=== PATIENT | male | born 1955 | race Asian ===

== ENCOUNTER 2023-12-01 10:35 | Inpatient (IN) | payer OTHER ==
[~2023-12-01] VITALS: Ht 170.2 cm; Wt 77.1 kg
[2023-12-01 11:07] VITALS: BP 126/74; PULSE 64; RESP 18; TEMP 98.7; O2SAT 98
[2023-12-01 11:50] LABS: BASOPHILS # (AUTO) 0.1 K/uL (0.00-0.22); BASOPHILS % (AUTO) 0.6 % (0.0-2.0); EOSINOPHILS # (AUTO) 0.1 K/uL (0-0.4); EOSINOPHILS % (AUTO) 1.7 % (0.0-4.0); HEMATOCRIT 43.5 % (36-52); LYMPHOCYTES # (AUTO) 2.2 K/uL (2.0-11.5); LYMPHOCYTES % (AUTO) 26.7 % (20.5-51.1); MEAN CORPUSCULAR HEMOGLOBIN 31 pg (27-31); MEAN CORPUSCULAR HGB CONC 34 g/dL (33-37); MEAN CORPUSCULAR VOLUME 89.8 fL (80-94); MONOCYTES # (AUTO) 0.7 K/uL (0.8-1.0); MONOCYTES % (AUTO) 8.6 % (1.7-9.3); NEUTROPHILS # (AUTO) 5.2 K/uL (1.8-7.7); NEUTROPHILS % (AUTO) 62.4 % (42.2-75.2); PLATELET COUNT (AUTO) 163 K/uL (140-450); RED BLOOD CELL COUNT(AUTO) 4.85 MIL/uL (4.20-6.10); RED CELL DISTRIBUTION WIDTH 13.7 % (11.6-13.7); WHITE BLOOD COUNT (AUTO) 8.3 K/uL (4.8-10.8)
[2023-12-01 12:06] LABS: CALCIUM 8.9 mg/dL (8.5-10.1); CARBON DIOXIDE 33.8 mmol/L (21-32)
[2023-12-01 12:10] LABS: POTASSIUM 2.8 mmol/L (3.5-5.1)
[2023-12-01 12:12] LABS: INR 1.05 (0.8-1.2); PARTIAL THROMBOPLASTIN TIME 25.4 secs (22-35.6)
[2023-12-01 12:13] LABS: ALANINE AMINOTRANSFERASE 36 U/L (12-78); ALBUMIN 4.1 g/dL (3.4-5.0); ALKALINE PHOSPHATASE 71 U/L (50-136); ASPARTATE AMINOTRANSFERASE 20 U/L (15-37); BILIRUBIN,DIRECT 0.1 mg/dL (0.0-0.3); TOTAL BILIRUBIN 0.7 mg/dL (0.0-1.0); TOTAL PROTEIN, SERUM 8.3 g/dL (6.4-8.2)
[2023-12-01] MEDS ORDERED: POTASSIUM CHLORIDE 10 MEQ TABER PO ONE (12:15)
[2023-12-01] MEDS ORDERED: ACETAMINOPHEN 325 MG TAB PO PRN (14:35)
[2023-12-01] MEDS ORDERED: MORPHINE SULFATE 2 MG/ML SYR IVP PRN (14:35)
[2023-12-01] MEDS ORDERED: HYDROcodone/APAP 5/325 MG 1 TAB TAB PO PRN (14:35)
[2023-12-01] MEDS ORDERED: ONDANSETRON 4 MG/2 ML VIAL IVP PRN (14:35)
[2023-12-01] MEDS ORDERED: MAGNESIUM OXIDE 400 MG TAB PO PRN (14:35)
[2023-12-01] MEDS ORDERED: MAG SULF 2000 MG/WATER PREMIX 50 ML IV PRN (14:35)
[2023-12-01] MEDS ORDERED: DEXTROSE 50% 50 ML SYR IVP PRN (14:40)
[2023-12-01] MEDS ORDERED: hydrALAZINE 20 MG/ML VIAL IVP PRN (14:40)
[2023-12-01] MEDS: BLOOD GLUCOSE MONITORING 1 DEV DEV FS SCH ×2 (17:32→21:38)
[2023-12-01] MEDS: INSULIN LISPRO SLIDING SCALE 100 UNITS/ML VIAL SUBQ PRN ×2 (17:48→21:41)
[2023-12-01] MEDS ORDERED: [UNRECOGNIZED DRUG - CODE] PO (19:31)
[2023-12-01] MEDS ORDERED: HYDR25TA32 PO (19:31)
[2023-12-01] MEDS ORDERED: ATOR20TA40 PO (19:31)
[2023-12-01] MEDS ORDERED: ASPI-1794 PO (19:31)
[2023-12-01] MEDS ORDERED: AMLO10TA88 PO (19:31)
[2023-12-01] MEDS ORDERED: METF-346 PO (19:31)
[2023-12-01 20:45] VITALS: PULSE 56; O2SAT 95
[2023-12-01 20:51] VITALS: PULSE 62
[2023-12-02] VITALS (9 sets, daily range): BP systolic 125–140; BP diastolic 64–88; PULSE 54–74; RESP 17–20; TEMP 97.7–98.2; O2SAT 94–99
[2023-12-02 06:10] LABS: BASOPHILS % (AUTO) 0.5 % (0.0-2.0); EOSINOPHILS # (AUTO) 0.2 K/uL (0-0.4); EOSINOPHILS % (AUTO) 2.9 % (0.0-4.0); HEMATOCRIT 42.8 % (36-52); HEMOGLOBIN 14.7 g/dL (12.0-18.0); LYMPHOCYTES # (AUTO) 2.2 K/uL (2.0-11.5); MEAN CORPUSCULAR HEMOGLOBIN 31 pg (27-31); MEAN CORPUSCULAR HGB CONC 34 g/dL (33-37); MEAN CORPUSCULAR VOLUME 89.6 fL (80-94); MONOCYTES # (AUTO) 0.7 K/uL (0.8-1.0); MONOCYTES % (AUTO) 9.1 % (1.7-9.3); NEUTROPHILS # (AUTO) 4.9 K/uL (1.8-7.7); NEUTROPHILS % (AUTO) 60.5 % (42.2-75.2); PLATELET COUNT (AUTO) 167 K/uL (140-450); RED BLOOD CELL COUNT(AUTO) 4.78 MIL/uL (4.20-6.10); RED CELL DISTRIBUTION WIDTH 13.7 % (11.6-13.7); WHITE BLOOD COUNT (AUTO) 8.1 K/uL (4.8-10.8)
[2023-12-02] MEDS: BLOOD GLUCOSE MONITORING 1 DEV DEV FS SCH ×4 (06:34→21:04)
[2023-12-02 06:36] LABS: ALBUMIN 3.7 g/dL (3.4-5.0); ANION GAP 10.8 (8-16); CALCIUM 8.5 mg/dL (8.5-10.1); CARBON DIOXIDE 32.1 mmol/L (21-32); CHOL/HDL RATIO 2.6 (1-4.5); CREATININE 0.8 mg/dL (0.6-1.3); MAGNESIUM 1.9 mg/dL (1.8-2.4); TOTAL BILIRUBIN 0.8 mg/dL (0.0-1.0); TOTAL PROTEIN, SERUM 7.5 g/dL (6.4-8.2)
[2023-12-02 06:42] LABS: POTASSIUM 2.9 mmol/L (3.5-5.1)
[2023-12-02] MEDS: amLODIPine 5 MG TAB PO SCH (08:27)
[2023-12-02] MEDS: ENOXAPARIN 40 MG/0.4 ML SYR SUBQ SCH (08:28)
[2023-12-02] MEDS: KCL 20 MEQ IN 100 mL PREMIX 200 ML IV PRN ×2 (08:29→11:22)
[2023-12-02] MEDS ORDERED: POTASSIUM CHLORIDE 40 MEQ in DEXTROSE 5% 250 ML IV SCH (09:05)
[2023-12-02] MEDS ORDERED: POTASSIUM CHLORIDE 40 MEQ, LIDOCAINE 1% 25 MG in NACL 0.9% 250 ML IV PRN (09:10)
[2023-12-02] MEDS ORDERED: POTASSIUM CHLORIDE 40 MEQ, LIDOCAINE 1% 25 MG in NACL 0.9% 250 ML IV SCH (09:10)
[2023-12-02] MEDS: INSULIN LISPRO SLIDING SCALE 100 UNITS/ML VIAL SUBQ PRN (11:55)
[2023-12-02] MEDS ORDERED: ATORVASTATIN 20 MG TAB PO SCH (21:00)
[2023-12-02] MEDS: ATORVASTATIN 20 MG TAB PO SCH (21:04)
[2023-12-03] VITALS (8 sets, daily range): BP systolic 124–159; BP diastolic 65–89; PULSE 52–84; RESP 16–20; TEMP 97.2–98.2; O2SAT 95–98
[2023-12-03] MEDS: BLOOD GLUCOSE MONITORING 1 DEV DEV FS SCH ×4 (06:33→20:31)
[2023-12-03 07:05] LABS: BASOPHILS # (AUTO) 0.1 K/uL (0.00-0.22); BASOPHILS % (AUTO) 0.7 % (0.0-2.0); EOSINOPHILS # (AUTO) 0.2 K/uL (0-0.4); EOSINOPHILS % (AUTO) 2.6 % (0.0-4.0); HEMATOCRIT 42.2 % (36-52); HEMOGLOBIN 14.5 g/dL (12.0-18.0); LYMPHOCYTES # (AUTO) 2.5 K/uL (2.0-11.5); LYMPHOCYTES % (AUTO) 27.4 % (20.5-51.1); MEAN CORPUSCULAR HEMOGLOBIN 31 pg (27-31); MEAN CORPUSCULAR HGB CONC 34 g/dL (33-37); MEAN CORPUSCULAR VOLUME 89.9 fL (80-94); MONOCYTES # (AUTO) 0.8 K/uL (0.8-1.0); MONOCYTES % (AUTO) 8.5 % (1.7-9.3); NEUTROPHILS # (AUTO) 5.6 K/uL (1.8-7.7); NEUTROPHILS % (AUTO) 60.8 % (42.2-75.2); PLATELET COUNT (AUTO) 158 K/uL (140-450); RED BLOOD CELL COUNT(AUTO) 4.69 MIL/uL (4.20-6.10); RED CELL DISTRIBUTION WIDTH 13.8 % (11.6-13.7); WHITE BLOOD COUNT (AUTO) 9.2 K/uL (4.8-10.8)
[2023-12-03 07:39] LABS: ALBUMIN 3.4 g/dL (3.4-5.0); ANION GAP 12.8 (8-16); CALCIUM 8.5 mg/dL (8.5-10.1); CARBON DIOXIDE 29.5 mmol/L (21-32); CREATININE 0.9 mg/dL (0.6-1.3); POTASSIUM 3.3 mmol/L (3.5-5.1); TOTAL BILIRUBIN 0.8 mg/dL (0.0-1.0); TOTAL PROTEIN, SERUM 7.1 g/dL (6.4-8.2)
[2023-12-03] MEDS: amLODIPine 5 MG TAB PO SCH (09:09)
[2023-12-03] MEDS: ASPIRIN 325 MG TABEC PO SCH (09:10)
[2023-12-03] MEDS: ENOXAPARIN 40 MG/0.4 ML SYR SUBQ SCH (09:13)
[2023-12-03] MEDS: POTASSIUM CHLORIDE 10 MEQ TABER PO PRN (09:19)
[2023-12-03] MEDS: INSULIN LISPRO SLIDING SCALE 100 UNITS/ML VIAL SUBQ PRN ×2 (12:17→20:34)
[2023-12-03] MEDS: ATORVASTATIN 20 MG TAB PO SCH (20:31)
[2023-12-04] VITALS: BP 134/84; PULSE 57; PULSE 66; RESP 18; TEMP 97.8; O2SAT 96
[2023-12-04 04:00] VITALS: BP 126/80; PULSE 53; PULSE 55; RESP 18; TEMP 98.2; O2SAT 96
[2023-12-04] MEDS: BLOOD GLUCOSE MONITORING 1 DEV DEV FS SCH ×2 (06:31→12:05)
[2023-12-04 06:46] LABS: BASOPHILS % (AUTO) 0.6 % (0.0-2.0); EOSINOPHILS # (AUTO) 0.2 K/uL (0-0.4); EOSINOPHILS % (AUTO) 2.9 % (0.0-4.0); HEMATOCRIT 41.6 % (36-52); HEMOGLOBIN 14.4 g/dL (12.0-18.0); LYMPHOCYTES # (AUTO) 2.2 K/uL (2.0-11.5); LYMPHOCYTES % (AUTO) 28.2 % (20.5-51.1); MEAN CORPUSCULAR HEMOGLOBIN 31 pg (27-31); MEAN CORPUSCULAR HGB CONC 35 g/dL (33-37); MEAN CORPUSCULAR VOLUME 89.6 fL (80-94); MONOCYTES # (AUTO) 0.6 K/uL (0.8-1.0); MONOCYTES % (AUTO) 8.2 % (1.7-9.3); NEUTROPHILS # (AUTO) 4.6 K/uL (1.8-7.7); NEUTROPHILS % (AUTO) 60.1 % (42.2-75.2); PLATELET COUNT (AUTO) 153 K/uL (140-450); RED BLOOD CELL COUNT(AUTO) 4.65 MIL/uL (4.20-6.10); RED CELL DISTRIBUTION WIDTH 13.7 % (11.6-13.7); WHITE BLOOD COUNT (AUTO) 7.6 K/uL (4.8-10.8)
[2023-12-04 07:18] LABS: ALBUMIN 3.4 g/dL (3.4-5.0); ANION GAP 12.5 (8-16); CALCIUM 8.5 mg/dL (8.5-10.1); CARBON DIOXIDE 27.8 mmol/L (21-32); CREATININE 0.7 mg/dL (0.6-1.3); POTASSIUM 3.3 mmol/L (3.5-5.1); TOTAL BILIRUBIN 0.7 mg/dL (0.0-1.0); TOTAL PROTEIN, SERUM 7.1 g/dL (6.4-8.2)
[2023-12-04 08:00] VITALS: BP 151/85; PULSE 57; PULSE 59; PULSE 63; RESP 18; RESP 19; TEMP 97.3; O2SAT 96; O2SAT 98
[2023-12-04] MEDS: amLODIPine 5 MG TAB PO SCH (09:02)
[2023-12-04] MEDS: ASPIRIN 325 MG TABEC PO SCH (09:02)
[2023-12-04] MEDS: POTASSIUM CHLORIDE 10 MEQ TABER PO PRN (09:02)
[2023-12-04] MEDS: ENOXAPARIN 40 MG/0.4 ML SYR SUBQ SCH (09:04)
[2023-12-04] MEDS ORDERED: GABA300C55 PO (10:24)
[2023-12-04] MEDS ORDERED: GABAPENTIN 300 MG CAP PO SCH (10:25)
[2023-12-04 12:00] VITALS: BP 149/78; PULSE 63; PULSE 81; RESP 18; TEMP 97.7; O2SAT 99
[2023-12-04] MEDS: INSULIN LISPRO SLIDING SCALE 100 UNITS/ML VIAL SUBQ PRN (12:02)
== END 2023-12-04 12:30 | disposition home or self-care (01) | DRG 48 ==
LOC: MED 10:35 → MMU 14:32 → MTU 18:53
PROVIDERS: ADMIT Internal Medicine; ATTEND Internal Medicine
DX: G56.91 Unspecified mononeuropathy of right upper limb (principal); E11.9 Type 2 diabetes mellitus without complications; E78.5 Hyperlipidemia, unspecified; E87.6 Hypokalemia; I10 Essential (primary) hypertension; Z79.899 Other long term (current) drug therapy; Z79.82 Long term (current) use of aspirin
CPT/HCPCS: 36415; 70450; 71045; 80048; 80053; 80076; 82948; 83036; 83735; 84484; 85025; 85610; 85730; 87081; 92526; 93005; 97116; 97163-GP; 99285; J1650; J1815; J2001; J3480; J7030; Q0092; Q9967

== ENCOUNTER 2024-03-01 09:51 | Day surgery (SDC) | payer OTHER ==
[~2024-03-01] VITALS: Ht 172.7 cm; Wt 81.6 kg
[~2024-03-01 09:51] MED LIST: AMLO10TA88 PO; ASPI-1794 PO; ATOR20TA40 PO; GABA300C55 PO; HYDR25TA32 PO; METF-346 PO; [UNRECOGNIZED DRUG - CODE] PO
[2024-03-01] MEDS ORDERED: fentaNYL citrate 0.05 MG/ML VIAL ONE (11:53)
[2024-03-01] MEDS ORDERED: LIDOCAINE 2% 100 MG/5 ML UJET TP ONE (11:53)
[2024-03-01] MEDS: fentaNYL citrate 0.05 MG/ML VIAL IVP ONE (12:12)
[2024-03-01] MEDS: LIDOCAINE 2% 100 MG/5 ML UJET TP ONE (12:29)
== END 2024-03-01 14:27 | disposition home or self-care (01) ==
LOC: MDS 09:51 → MMU 10:02 → MDS 14:17
PROVIDERS: ATTEND Internal Medicine Gastroenterology
DX: Z12.11 Encounter for screening for malignant neoplasm of colon (principal); K63.5 Polyp of colon; I10 Essential (primary) hypertension; E11.9 Type 2 diabetes mellitus without complications; E78.00 Pure hypercholesterolemia, unspecified; Z79.899 Other long term (current) drug therapy
CPT/HCPCS: 45385; 82948; J3010